=== PATIENT | female | born 1995 | race Two or more races ===

== ENCOUNTER 2023-09-18 17:22 | Emergency (ER) | payer MEDICAID ==
[~2023-09-18] VITALS: Ht 165.1 cm; Wt 82.0 kg
[2023-09-18 17:46] VITALS: BP 131/67; PULSE 66; RESP 16; O2SAT 99
== END 2023-09-19 00:24 | disposition left against medical advice (07) ==
LOC: ER 17:22
DX: R51.9 Headache, unspecified (principal); M79.622 Pain in left upper arm; Z53.21 Procedure and treatment not carried out due to patient leaving prior to being seen by health care provider